=== PATIENT | female | born 1980 | race American Indian/Alaskan Native ===

== ENCOUNTER 2018-02-12 08:50 | Emergency (ER) | payer OTHER ==
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
[2018-02-12] MEDS ORDERED: MOTRIN PO ONE (10:26)
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
[2018-02-12 11:24] VITALS: BP 100/70
== END 2018-02-12 11:18 | disposition home or self-care (01) ==
LOC: ED 08:50
DX: S86.912A Strain of unspecified muscle(s) and tendon(s) at lower leg level, left leg, initial encounter (principal); S76.012A Strain of muscle, fascia and tendon of left hip, initial encounter; F17.200 Nicotine dependence, unspecified, uncomplicated; Z90.710 Acquired absence of both cervix and uterus; Y93.89 Activity, other specified; V89.2XXA Person injured in unspecified motor-vehicle accident, traffic, initial encounter; Y92.89 Other specified places as the place of occurrence of the external cause; Y99.8 Other external cause status
CPT/HCPCS: 99283

== ENCOUNTER 2021-08-05 09:06 | Outpatient (CLI) | payer OTHER ==
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
--- NOTE | 2021-08-05 10:38 | XRay Report ---
BILATERAL HAND 2 VIEW(S) INDICATION / CLINICAL INFORMATION: BILATERAL HAND PAIN COMPARISON: None available. FINDINGS: BONES / JOINT(S): No acute fracture or subluxation. No significant arthritis. The joint spaces are ma intained. No erosions are seen. SOFT TISSUES: No significant abnormality. ADDITIONAL FINDINGS: None. Signer Name: Martin Downs MD Signed: 08/05/2021 10:34 AM Workstation Name: [id number]
== END 2021-08-05 09:07 | disposition home or self-care (01) ==
LOC: XRAY 09:06
PROVIDERS: ATTEND Internal Medicine
DX: M79.642 Pain in left hand (principal); M79.641 Pain in right hand; M79.672 Pain in left foot